=== PATIENT | male | born 1990 | race African-American/Black ===

== ENCOUNTER 2024-01-18 15:34 | Emergency (ER) | payer MEDICAID, OTHER ==
[~2024-01-18] VITALS: Ht 190.5 cm; Wt 113.4 kg
[2024-01-18 15:48] VITALS: BP 166/113; PULSE 64; RESP 20; TEMP 98.6; O2SAT 100
[2024-01-18] MEDS: CYCLOBENZAPRINE 10 MG TAB PO ONE (16:37)
[2024-01-18] MEDS: KETOROLAC 60 MG/2 ML VIAL IM ONE (16:42)
[2024-01-18] MEDS ORDERED: NAPR-337 PO (17:07)
[2024-01-18] MEDS ORDERED: CYCL-711 PO (17:07)
== END 2024-01-18 17:23 | disposition home or self-care (01) ==
LOC: MED 15:34
DX: M54.50 Low back pain, unspecified (principal); I10 Essential (primary) hypertension; Z79.899 Other long term (current) drug therapy
CPT/HCPCS: 96372; 99283; J1885